=== PATIENT | female | born 1940 | race Caucasian/White ===

== ENCOUNTER 2016-07-25 06:30 | Day surgery (SDC) | payer MEDICARE ==
[~2016-07-25] VITALS: Ht 157.5 cm; Wt 91.4 kg
[~2016-07-25 06:30] MED LIST: ASPI-973 PO; ATEN50TA PO; CHOL100043 PO; CeFAZolin Inj 2 GM in IV Premix 1 EACH IV SCH; DICL100G8 TOPICAL; FELO5TAB4 PO; GABA600T2 PO; HYDR25TA4 PO; INSU500V SUBQ; LEVO112T4 PO; LOSA100T3 PO; METF-495 PO; NPH,100V11 SUBQ; NPR500T PO; OMEP20CA11 PO; PARO20TA57 PO; ROSU40TA PO
[2016-07-25] MEDS ORDERED: fentaNYL-PF 50 mCg/mL 2 mL Inj ONE (06:31)
[2016-07-25] MEDS ORDERED: Propofol 10,000 mCg/mL 20 mL Inj ONE (06:31)
[2016-07-25] MEDS: Lactated Ringer's 1,000 ML IV SCH ×2 (06:54→08:17)
[2016-07-25 07:07] VITALS: BP 137/59; PULSE 53; RESP 18; O2SAT 95
[2016-07-25] MEDS ORDERED: Lactated Ringer's 500 ML IV PRN (08:06)
[2016-07-25] MEDS ORDERED: Lactated Ringer's 1,000 ML IV SCH (08:06)
--- NOTE | 2016-07-25 08:06 | PCM.HPANE ---
Patient Data Date of Service: July 25, 2016 Surgeon Admitting Provider: Attending Provider:Ld Steve MD Primary Care Physician:Shelbi Moreira Other Provider:Chyna Munroe Anesthesia Reason for Visit Left Middle Finger Ganglion Cyst Ht/WT & BMI Height (Feet): 5 Height (Inches): 2 Weight (Kilograms): 91.4 Body Mass Index 37.00 Allergies Coded Allergies: No Known Allergies (Verified , 10/25/15) Past Anesthesia History Anesthesia History: Denies:: Abnormal Airway, Anesthesia Reactions, Difficult Intubation, Fam Anesthesia Reaction, Fam Malignant Hypertherm, Malignant Hyperthermia Diabetes History Hx Diabetes?: Yes Type of Diabetes: Type II Glycemic Control: Insulin & Oral Medication Current Bedside Blood Glucose: 119 MRSA MRSA: No Medications Blood Thinner: Aspirin Home Meds Incl Beta Pauline: Yes (atenolol) Date Beta Pauline Taken: July 25, 2016 Time Beta Pauline Taken: 529 Reported Medications Diclofenac Gel (Voltaren Gel)100 Gm Tube1 Applic TOPICAL DIRECTED PRN For Pain #1 TUBE 07/23/16 Cholecalciferol (Vitamin D3) (Vitamin D)1,000 Unit Tablet2,000 Unit PO DAILY #1 BOTTLE Ref 0 07/23/16 Paroxetine (Paxil)20 Mg Ekviql56 Mg PO HS Ref 0 07/23/16 Omeprazole 20 Mg Capsule.dr20 Mg PO DAILY Ref 0 07/23/16 Naproxen 500 Mg Xxl795 Mg PO BID PRN For Pain Ref 0 07/23/16 Metformin ER 500 Mg Tablet1,500 Mg PO DAILY Ref 0 07/23/16 Levothyroxine 112 Mcg Dxveyu993 Mcg PO DAILY For Thyroid Replacement Ref 0 07/23/16 Hydrochlorothiazide 25 Mg Qovzif79 Mg PO DAILY 30 Days Ref 0 07/23/16 Insulin Regular, Human (HUMulin-R U-500 Insulin Vial)500 Unit/1 Ml Vial1 Unit SUBQ BID #1 VIAL Ref 0 07/23/16 NPH, Human Insulin Isophane (HUMulin-N U100 Insulin Vial)100 Unit/1 Ml Vial1 Unit SUBQ BID #1 VIAL Ref 0 07/23/16 Gabapentin 600 Mg Qwrjdx747 Mg PO QID Ref 0 07/23/16 Felodipine ER 5 Mg Tab.er.24h5 Mg PO DAILY Ref 0 07/23/16 Rosuvastatin Calcium (Crestor)40 Mg Dnimam87 Mg PO DAILY 30 Days Ref 0 07/23/16 Losartan Potassium (Cozaar)100 Mg Wvlkdn635 Mg PO DAILY 07/23/16 Atenolol 50 Mg Klorfv00 Mg PO DAILY #30 TABLET Ref 0 07/23/16 Aspirin 81 Mg Nqsezh96 Mg PO DAILY Ref 0 07/23/16 Discontinued Reported Medications Metformin 500 Mg Tablet1,500 Mg PO Ref 0 10/24/15 Cholecalciferol-Expunged Drug, Do Not Renew! (Vitamin D3-Expunged Drug, Do Not Renew!)2,000 Unit Tablet4,000 Unit PO DAILY 05/10/13 Omeprazole-Expunged Drug, Do Not Renew! 20 Mg Capsule.dr20 Mg PO DAILY Ref 0 05/10/13 Aspirin-Expunged Drug, Do Not Renew! 81 Mg Ifgurn27 Mg PO DAILY 03/08/13 Atenolol-Expunged Drug, Do Not Renew! 50 Mg Zpjvth31 Mg PO DAILY 03/08/13 Rosuvastatin-Expunged Drug, Do Not Renew! (Crestor-Expunged Drug, Do Not Renew!) 20 Mg Jghwhf01 Mg PO DAILY For Cholesterol Management. 03/08/13 Hydrochlorothiazide-Expunged, Do Not Renew! 25 Mg Qmlppx47 Mg PO DAILY 03/08/13 PARoxetine-Expunged Drug, Do Not Renew! (Paxil-Expunged Drug, Do Not Renew!)20 Mg Sjkfgf84 Mg PO DAILY 03/08/13 INSULIN NPH-Expunged Drug, Do Not Renew! (Humulin N-Expunged Drug, Do Not Renew! )100 Unit/Ml U26 Unit SUBQ QAM 03/08/13 Levothyroxine-Expunged Drug, Do Not Renew! (Synthroid-Expunged Drug, Do Not Renew!)125 Mcg Cakwae040 Mcg PO DAILYAC 0.125 MG = 125 MCG 03/08/13 Felodipine-Expunged Drug, Do Not Renew! (Plendil-Expunged Drug, Do Not Renew!)5 Mg Tablet5 Mg PO DAILY 03/08/13 Gabapentin-Expunged Drug, Do Not Renew! 600 Mg Suezmv086 Mg PO QID 03/08/13 Insulin Regular-Expunged Drug, Do Not Renew! (Humulin R-Expunged Drug, Do Not Renew!)100 U/Ml Vial7 Unit SUBQ QPM 03/08/13 Insulin Regular-Expunged Drug, Do Not Renew! (Humulin R-Expunged Drug, Do Not Renew!)100 U/Ml Vial5 Unit SUBQ QAM 03/08/13 Losartan-Expunged Drug, Do Not Renew! 100 Mg Cbrhud748 Mg PO DAILY 03/08/13 History History of ENT Problems?: Yes HEENT History: Positive for:: Cataracts (S/P BILAT EXTRACTION) Sinus Problem (ALLERGIC RHINITIS) Denies:: Abnormal Airway Difficult Intubation Dysphagia Hearing Problem Denture Type: Full- Upper Full- Lower Teeth Condition: Missing Teeth Hx of Heart Problems?: Yes Cardiovascular History: Positive for:: Cardiac Surgery (HEART CATH X2 (2005, 2006)) Coronary Artery Disease (ELEVATED CHLORESTEROL) Edema Hypertension Irregular Heartbeat (HX OF SYNCOPE HX OF UNSUSTAINED [place] FOLLOWING [facility] IN 2005) Denies:: AICD Atrial Fibrillation Chest Pain Congestive Heart Failure Heart Murmur (ECHO 11/2008) Pacemaker Valvular Heart Disease Hx of Respiratory Problem?: No Respiratory History: Denies:: Asthma COPD Cough Hemoptysis Pneumonia Tuberculosis Use of C-PAP Machine (SNORES) Hx Neurologic Problems?: No Neurological History: Denies:: CVA Dementia Hx of GI Problems?: No Other GI Pertinent History: INCONTINENCE OF FECES Hx of Problems?: Yes Genitourinary History: Positive for:: Urinary Tract Infection Other Pertinent History: INCOMPLETE UTEROVGINAL PROLAPSE Female Hx: Denies:: Currently Skin History: Denies:: History Skin Disorders? Pressure Ulcers Hx Musculoskeletal Problems?: Yes Musculoskeletal History: Positive for:: Osteoarthritis Denies:: Joint Replacement Hx of Psycho/Social Problems?: Yes Psycho Social History: Positive for:: Hx Depression Denies:: Anxiety Hx Surgeries?: Yes (HYSTERECTOMY, EBENEZER, LEFT FINGER) Hx Any Other Health Problems?: No Other History: Positive for:: Hospitalization Thyroid Disease (S/P THYROID BX) Denies:: Cancer Endocrine Disease History Blood Transfusions: Denies:: Blood Transfusions Hx Diabetes: YesBedside Blood Glucose: 119 Hx Alcohol Use: Yes (SOCIAL)Hx Substance Use: No Smoking Status: Never Smoker Have You Smoked inLast 12 mo: No Stop/Bang S-Snoring: Do You Snore Loudly: No T-Tired: feel tired, fatigued: No O-Obsered: Observed not breath: No P-Blood Pressure: treated: Yes B- Body Mass Index > 35 kg/m2: Yes A- Age over 50: Yes N- Neck Large Circumference: No G- Gender Male: No BETHANY Total Score: 3 Risk Assessment Category Category 1A: Patient has history of documented sleep apnea, and HAS NOT received any narcotic, sedative or anesthesia administration during this stay. Category 1B: Patient has history of documented sleep apnea, and HAS received any narcotic , sedative or anesthesia administration during this stay Category 2: Patient has SUSPECTED Obstructive Sleep Apnea, and HAS received any narcotic , sedative or anesthesia administration during this stay. Category 3: Patient has SUSPECTED Obstructive Sleep Apnea and HAS NOT received narcotic, sedative or anesthesia administration during this stay. Category 4: Outpatient in Procedural Areas with known sleep apnea or who screen positive for High Risk via the STOP/BANG questionnaire. Exam Exam Vital Signs Vital Signs Date Time Temp Pulse Resp B/P Pulse Ox O2 Delivery O2 Flow Rate FiO2 07/25/16 07:07 36.3 53 18 137/59 95 Room Air General Appearance: Alert, Oriented X3 HEENT/AIRWAY: MP 2 Lungs: Clear to Auscultation Heart: Exam Unremarkable, Regular Rate/Rhythm Meds/Labs/Diagnostics Admission Meds Current Medications Lactated Ringer's (Lr) 1,000 ml @ 120 mls/hr Q8H20M IV Last administered on t 06:54; Start 07/25/16 at 05:00; Stop 07/25/16 at 13:19 Bedside Blood Glucose: 119 Plan Impression Patient chart reviewed, patient interviewed and anesthestic plan with risks, benefits, and alternatives discussed, and informed consent obtained. ASA Physical Status: ASA2 Mod Systemic Disease Anesthetic Plan: MAC Bene/Risks/Altern/Consents: Yes HP Complete Prior to Induction: Yes Honorio Recinos MD July 25, 2016 08:06
[2016-07-25] MEDS ORDERED: Ondansetron 2 mg/mL 2 mL Inj IVPUSH PRN (08:10)
[2016-07-25] MEDS ORDERED: fentaNYL-PF 50 mCg/mL 2 mL Inj IVPUSH PRN (08:10)
[2016-07-25] MEDS ORDERED: HYDROmorphone 1 mg/mL Inj IVPUSH PRN (08:10)
[2016-07-25] MEDS ORDERED: Phenylephrine 10,000 mCg/mL Inj IVPUSH PRN (08:10)
[2016-07-25] MEDS ORDERED: Labetalol 5 mg/mL 4 mL Inj IV PRN (08:10)
[2016-07-25] MEDS ORDERED: Dexamethasone 4 mg/mL Inj IVPUSH PRN (08:10)
[2016-07-25] MEDS ORDERED: MetoCLOpramide 5 mg/mL 2 mL Inj IVPUSH PRN (08:10)
[2016-07-25] MEDS ORDERED: EPHEDrine Sulfate 50 mg/mL Inj IVPUSH PRN (08:10)
[2016-07-25] MEDS ORDERED: Bupivacaine-MPF 0.25% 30 mL Inj INFILTRATE ONE (08:30)
[2016-07-25 08:50] VITALS: BP 153/64; PULSE 54; RESP 16; O2SAT 95
--- NOTE | 2016-07-25 08:59 | PCM.ANEP1 ---
Post Anesthesia PACU Phase 1 Assessment Date of Service: July 25, 2016 Vital Signs Vital Signs Date Time Temp Pulse Resp B/P Pulse Ox O2 Delivery O2 Flow Rate FiO2 07/25/16 07:07 36.3 53 18 137/59 95 Room Air Anesthetic Administered: MAC Level of Alertness: Awake, talking MERCER's with Equal Strength: Yes Pain: No Nausea or Vomiting: No CV Function & Hydration Stable: Yes Airway Device: Lungs: Clear to Auscultation PACU Phase 2 Assessment Complications: No Patient Instructions Provided: Yes Honorio Recinos MD July 25, 2016 08:59
[2016-07-25 09:29] VITALS: BP 150/60; PULSE 54; RESP 18; O2SAT 96
--- NOTE | 2016-07-26 13:51 | PATH ---
SURGICAL PATHOLOGY Attending Physician:Ld Steve CASE STATUS: Signed Out PATIENT NAME: AMAN LYNNE PID: [id number] : 1940 DATE COLLECTED:07/25/2016 15:32 SPECIMEN: Ganglion Cyst CLINICAL HISTORY: 1. LEFT MIDDLE FINGER GANGLION CYST FINAL DIAGNOSIS: 1.LEFT MIDDLE FINGER GANGLION CYST. GANGLION CYST. ICD10 M67.4 GROSS DESCRIPTION: The specimen is received in one formalin filled container labeled with the patient's name, sublabeled "left middle finger ganglion cyst" and consists of a light judge irregularly-shaped portion of tissue which measures 1.5 x 0.7 x 0.4 CM. The specimen is inked blue. The specimen is sectioned into multiple pieces and entirely submitted in one cassette. 07/25/2016 [facility] MICRO DESCRIPTION: See diagnosis. ICD-9 CODES: CPT CODES: 1: 73427 Electronically Signed Out Quinn Talley MD [facility] Pathology [facility] [address], [place] [address] Technical component performed at [facility], [facility] [address], [place], [address]
--- NOTE | 2016-07-26 22:39 | OP ---
[address] [address] OPERATIVE REPORT PATIENT: AMAN LYNNE : 1940 MR#: [id number] ADMIT: 07/25/2016 JOB ID: [id number] DATE OF SURGERY: 07/25/2016 PREOPERATIVE DIAGNOSIS(ES): Left middle finger dorsal nodule. POSTOPERATIVE DIAGNOSIS(ES): Left middle finger dorsal nodule, likely a ganglion cyst. PROCEDURE: Excision of left middle finger ganglion cyst. SURGEON: Ld Steve MD. RUNNING RIGGER: None. ANESTHESIA: MAC with local. COMPLICATIONS: None apparent. SPECIMEN: Left middle finger ganglion cyst to Pathology. INDICATIONS FOR PROCEDURE: This is a 76-year-old female patient with a slowly enlarging mass of the left middle finger over the dorsum of the PIP joint. It is likely a ganglion cyst. At this point, excision is indicated to prevent erosion through the skin and rupture. PROCEDURES AND FINDINGS: The patient was identified in the preoperative area. Surgical site was marked. The patient was then taken back to the operating room and placed supine on the operating table. Appropriate time-outs were taken. MAC was induced smoothly. The patient was then prepped and draped in the usual sterile manner. Local anesthesia was then infiltrated to the left middle finger around the neurovascular bundle and in a dorsal ring block. The left middle finger was then exsanguinated and a small finger tourniquet was placed at the base of the finger. It was noted that patient has a large cystic mass on the dorsum of the PIP joint approximately 1.5 cm x almost 2 cm. A midline incision was then made directly over this mass. Care was taken not to enter into the mass. Incision was then extended proximal and distal to the mass. Through the proximal portion of this incision, I elevated the skin off of the underlying soft tissue until I encountered this mass. I then elevated the skin off of this mass which appeared to be a ganglion cyst. Part of the skin was quite stretched out and tenuated over the mass. I entered the mass several times during this process and gelatinous clear substance was expressed. I was able to completely dissect the skin off of this mass. The mass was then dissected off of the underlying extensor apparatus. It was then passed off to Pathology as a specimen. At this point, excess skin was removed. Tourniquet was released and hemostasis was obtained with electrocautery. The incision was then reapproximated with a 4-0 nylon simple running suture. The patient tolerated the procedure well. Needle count, sponge count, instrument counts were correct at the end of the procedure. The patient was transported to recovery in stable condition.
== END 2016-07-25 23:59 | disposition home or self-care (01) ==
LOC: SAS 06:30
PROVIDERS: ATTEND Plastic Surgery
DX: M67.442 Ganglion, left hand (principal); M19.042 Primary osteoarthritis, left hand; I10 Essential (primary) hypertension; I25.10 Atherosclerotic heart disease of native coronary artery without angina pectoris; G47.33 Obstructive sleep apnea (adult) (pediatric); E03.9 Hypothyroidism, unspecified; E11.9 Type 2 diabetes mellitus without complications; F32.9 Major depressive disorder, single episode, unspecified; Z79.82 Long term (current) use of aspirin; Z79.4 Long term (current) use of insulin; Z79.84 Long term (current) use of oral hypoglycemic drugs; Z90.710 Acquired absence of both cervix and uterus
CPT/HCPCS: 26160; 88304; J0690; J2250; J3010; J7120